=== PATIENT | female | born 1950 | race Caucasian/White ===

== ENCOUNTER → 2020-01-05 | Outpatient (CLI) | payer MEDICARE ==
[~2020-01-05] MED LIST: E-Z-GAS II EFFERVESCENT PACKET (SODIUM BICARB./CITRIC ACID/SIMETHICONE) As Ordered ONE; E-Z-HD 98% w/w 340GM SUSP BTL As Ordered ONE; E-Z-PAQUE 96% w/w SUSP 176GM BTL As Ordered ONE
--- NOTE | 2020-01-25 14:08 | REP ---
ESOPHAGRAM AIR CONTRAST The procedure was performed under the direct supervision of Dr. Morrison. The images were reviewed with Dr. Morrison. A single view PA chest x-ray is submitted as a team psychologist film. The superior mediastinal structures are midline. The heart size is within normal limits. The lungs are clear. There is an anterior cervical fixation plate extending from C5 through C7. Liquid barium and gas-producing granules were given in the erect position, as well as liquid barium in the prone oblique positions in order to perform a double-contrast esophagram examination. The oral and pharyngeal stages of deglutition are unremarkable. Esophageal transport is prompt and efficient, and there is no esophagitis, stricture, mucosal ring, or hiatal hernia. There is gastroesophageal reflux demonstrated to above the level of the salvatore. IMPRESSION: There is gastroesophageal reflux demonstrated to above the level of the salvatore. Otherwise, unremarkable double contrast esophagram examination. 1.4 minutes of fluoroscopy time was utilized for this procedure. [facility]
== END ==
LOC: M RAD 07:31
PROVIDERS: ATTEND Specialist
DX: K21.9 Gastro-esophageal reflux disease without esophagitis (principal)

== ENCOUNTER → 2021-08-01 | Outpatient (REF) | payer MEDICARE | LOC: M SFHCDERM 18:30 | PROVIDERS: ATTEND Dermatology | DX: D23.62 Other benign neoplasm of skin of left upper limb, including shoulder (principal) ==

== ENCOUNTER → 2024-08-14 | Outpatient (REF) | payer MEDICARE | LOC: M LAB REF 17:02 | PROVIDERS: ATTEND Internal Medicine Nephrology | DX: N18.32 Chronic kidney disease, stage 3b (principal) ==

== ENCOUNTER → 2025-01-19 | Outpatient (REF) | payer MEDICARE | LOC: M LAB REF 16:40 | PROVIDERS: ATTEND Internal Medicine Nephrology | DX: N18.32 Chronic kidney disease, stage 3b (principal) ==